=== PATIENT | male | born 1935 ===

== ENCOUNTER 2018-11-01 11:07 | Emergency (ER) | payer OTHER ==
[~2018-11-01] VITALS: Ht 165.1 cm; Wt 77.1 kg
[2018-11-01] MEDS ORDERED: COZAAR25 MG PO (11:39)
[2018-11-01] MEDS ORDERED: TAMS0.4C PO ×2 (11:39→11:41)
[2018-11-01] MEDS ORDERED: FINASTERIDE5 MG PO (11:39)
[2018-11-01] MEDS ORDERED: SIMVASTATIN20 MG PO (11:40)
[2018-11-01] MEDS ORDERED: HUMULIN 70100 UNIT/2 (11:40)
== END 2018-11-01 13:12 | disposition home or self-care (01) ==
LOC: ER 11:07
DX: M54.32 Sciatica, left side (principal)